=== PATIENT | female | born 1965 ===

== ENCOUNTER 2018-01-11 00:05 | Emergency (ER) | payer SELFPAY ==
[2018-01-11 00:29] VITALS: RESP 16; TEMP 98.2
[2018-01-11] MEDS ORDERED: DiphenhydrAMINE 50 mg/ml Inj ONE (00:49)
[2018-01-11] MEDS ORDERED: DiphenhydrAMINE 50 mg/ml Inj IVP STA (01:12)
--- NOTE | 2018-01-11 01:19 | C.PDOC ---
History Of Present Illness 52 year old female presents to the ER with a complaint of itchy throat and rash to the neck and upper chest area after eating shrimp. Patient reports a Hx of similar intermittent allergy in the past. Denies chest tightness or SOB. Time Seen by Provider: 01/11/18 00:46 Chief Complaint (Nursing): ENT Problem History Per: Patient History/Exam Limitations: no limitations Onset/Duration Of Symptoms: Hrs Current Symptoms Are (Timing): Still Present Context: Food Possible Cause: Food Associated Symptoms: Skin Rash, Itching Home/EMS Treatment: None Recent travel outside of the [place]: No Past Medical History Reviewed: Historical Data, Nursing Documentation, Vital Signs Vital Signs: Last Vital Signs Temp 98.2 F 01/11/18 00:24 Pulse 70 01/11/18 01:36 Resp 16 01/11/18 01:36 BP 129/78 01/11/18 01:36 Pulse Ox 98 01/11/18 01:36 Family History: States: Unknown Family Hx - Social History Hx Alcohol Use: No Hx Substance Use: No - Immunization History Hx Tetanus Toxoid Vaccination: No Hx Influenza Vaccination: No Hx Pneumococcal Vaccination: No Review Of Systems Constitutional: Negative for: Fever, Chills ENT: Positive for: Other (Throat itching) Cardiovascular: Negative for: Chest Pain Respiratory: Negative for: Shortness of Breath, Wheezing Skin: Positive for: Rash Physical Exam - Physical Exam Appears: Non-toxic Skin: Warm, Dry, Rash (Erythematous macular to anterior neck and upper chest area) Head: Atraumatic, Normacephalic Eye(s): bilateral: Normal Inspection Nose: Normal Oral Mucosa: Moist Tongue: Normal Appearing, No Swelling Lips: Normal Appearing, No Swelling Throat: Normal, No Other (Swelling) Neck: Normal, Supple Chest: Symmetrical, No Tenderness Cardiovascular: Rhythm Regular Respiratory: Normal Breath Sounds, No Accessory Muscle Use, No Rales, No Rhonchi , No Stridor, No Wheezing Neurological/Psych: Oriented x3, Normal Speech ED Course And Treatment O2 Sat by Pulse Oximetry: 99 (Room air) Pulse Ox Interpretation: Normal Progress Note: Benadryl, pepcid, and solumedrol administered. On reevaluation, patient reports improvement of symptoms, she is resting comfortably in the ER in no acute respiratory distress, vitals are stable, will discharge home with Rx and instructions to follow up with PMD or return if symptoms worsen. Disposition Counseled Patient/Family Regarding: Diagnosis, Need For Followup, Rx Given - Disposition Referrals: [facility] [Outside] Disposition: HOSPITALIZED Disposition Time: 01:16 Condition: STABLE Additional Instructions: [facility] Prescriptions: DiphenhydrAMINE [Benadryl] 50 mg PO TID #20 cap Famotidine [Pepcid] 20 mg PO DAILY #5 tab predniSONE [Prednisone] 40 mg PO DAILY #6 tab Instructions: [place] (DC) Forms: [employer] (Indonesian) Print Language: PORTUGUESE - Clinical Impression Clinical Impression: Allergic urticaria - PA / BUSINESS ASST / Resident Statement MD/DO has reviewed & agrees with the documentation as recorded. - Scribe Statement The provider has reviewed the documentation as recorded by the Scribche Adams All medical record entries made by the Scribche were at my direction and personally dictated by me. I have reviewed the chart and agree that the record accurately reflects my personal performance of the history, physical exam, medical decision making, and the department course for this patient. I have also personally directed, reviewed, and agree with the discharge instructions and disposition.
[2018-01-11 01:37] VITALS: BP 129/78; PULSE 70
[2018-01-11 02:38] VITALS: O2SAT 99
== END 2018-01-11 01:36 | disposition home or self-care (01) ==
LOC: C.ER 00:05
DX: L50.0 Allergic urticaria (principal)
CPT/HCPCS: 96374; 96375; 99283; J1200; J2930